=== PATIENT | male | born 1980 | race Caucasian/White ===

== ENCOUNTER 2021-07-25 11:24 | Emergency (ER) | payer BC ==
[~2021-07-25] VITALS: Ht 170.2 cm; Wt 84.8 kg
--- NOTE | 2021-07-25 11:28 | NUR ---
Patient came in ER via ambulance, alert and oriented x4. Patient stated shaking while doing MRI today, with history of head injury 3 months ago. No episodes of nausea vomiting, with headache 6/10. Vitals stable.
--- NOTE | 2021-07-25 11:37 | NUR ---
MD at bedside, medical screening exam in process.
--- NOTE | 2021-07-25 12:52 | NUR ---
Patient does not wish to proceed with medical care recommended by Dr. Palacios. Patient given information related to possible complications, up to and including , which could occur as a result of leaving the hospital at this time. Patient verbalizes understanding of risks involved due to leaving against medical advice. Patient has signed AMA form.
== END 2021-07-25 12:55 | disposition left against medical advice (07) ==
LOC: ER 11:24
DX: G93.40 Encephalopathy, unspecified (principal); Z87.820 Personal history of traumatic brain injury; Z53.29 Procedure and treatment not carried out because of patient's decision for other reasons
CPT/HCPCS: 93005; A4663